=== PATIENT | male | born 1945 | race Hispanic/Latino ===

== ENCOUNTER → 2017-05-23 | Outpatient (CLI) | payer OTHER, MEDICARE | END | disposition home or self-care (01) | LOC: RAH 10:21 | PROVIDERS: ATTEND Family Medicine | DX: R27.0 Ataxia, unspecified (principal); R05 Cough | CPT/HCPCS: 70450; 71046 ==

== ENCOUNTER → 2018-05-07 | Outpatient (CLI) | payer OTHER, MEDICARE | END | disposition home or self-care (01) | LOC: SHCH 15:03 | PROVIDERS: ATTEND Internal Medicine Cardiovascular Disease | DX: I65.23 Occlusion and stenosis of bilateral carotid arteries (principal) | CPT/HCPCS: 93880 ==

== ENCOUNTER → 2018-05-13 | Outpatient (CLI) | payer OTHER, MEDICARE | END | disposition home or self-care (01) | LOC: SHCH 11:37 | PROVIDERS: ATTEND Internal Medicine Cardiovascular Disease | DX: I51.7 Cardiomegaly (principal); I35.0 Nonrheumatic aortic (valve) stenosis | CPT/HCPCS: 93306 ==

== ENCOUNTER → 2019-07-28 | Outpatient (CLI) | payer OTHER, MEDICARE | END | disposition home or self-care (01) | LOC: SHCH 15:54 | PROVIDERS: ATTEND Internal Medicine Cardiovascular Disease | DX: I08.0 Rheumatic disorders of both mitral and aortic valves (principal) | CPT/HCPCS: 93306; 93356 ==

== ENCOUNTER → 2019-07-30 | Outpatient (CLI) | payer OTHER, MEDICARE | END | disposition home or self-care (01) | LOC: SHCH 12:35 | PROVIDERS: ATTEND Internal Medicine Cardiovascular Disease | DX: I65.23 Occlusion and stenosis of bilateral carotid arteries (principal); I35.1 Nonrheumatic aortic (valve) insufficiency | CPT/HCPCS: 93880 ==

== ENCOUNTER → 2020-03-30 | Outpatient (CLI) | payer OTHER, MEDICARE | END | disposition home or self-care (01) | LOC: SHCH 15:14 | PROVIDERS: ATTEND Internal Medicine Cardiovascular Disease | DX: I08.0 Rheumatic disorders of both mitral and aortic valves (principal) | CPT/HCPCS: 93306; 93356 ==

== ENCOUNTER → 2020-07-31 | Outpatient (CLI) | payer OTHER, MEDICARE | END | disposition home or self-care (01) | LOC: SHCH 11:04 | PROVIDERS: ATTEND Internal Medicine Cardiovascular Disease | DX: I65.23 Occlusion and stenosis of bilateral carotid arteries (principal) | CPT/HCPCS: 93880 ==

== ENCOUNTER 2021-04-20 09:12 | Emergency (ER) | payer OTHER, MEDICARE ==
[~2021-04-20] VITALS: Ht 157.5 cm; Wt 54.4 kg
[2021-04-20 09:28] LABS: BASOPHILS % (AUTO) 0.7 % (0.0-5.0); EOSINOPHILS % (AUTO) 1.6 % (0.0-8.0); HEMATOCRIT 41.1 % (42-54); LYMPHOCYTES % (AUTO) 17.2 % (21.0-51.0); MEAN CORPUSCULAR HGB CONC 32.8 g/dL (32.0-36.0); MEAN CORPUSCULAR VOLUME 94.3 fL (79-99); MONOCYTES % (AUTO) 7.6 % (3.0-13.0); NEUTROPHILS % (AUTO) 72.8 % (40.0-77.0); PLATELET COUNT (AUTO) 155 K/uL (130-400); RED BLOOD CELL COUNT(AUTO) 4.36 MIL/uL (4.50-6.20); RED CELL DISTRIBUTION WIDTH 12.8 % (11.0-15.5); WHITE BLOOD COUNT (AUTO) 7.1 K/uL (4.8-10.8)
[2021-04-20 09:38] LABS: CREATININE 1.1 mg/dL (0.5-1.5); POTASSIUM 4.8 mmol/L (3.5-5.1)
[2021-04-20 09:43] LABS: INR 1.1 (0.85-1.15); PROTHROMBIN TIME 11.9 SEC (9.6-11.6)
[2021-04-20 09:44] LABS: PARTIAL THROMBOPLASTIN TIME 30.1 SEC (26.3-35.5)
[2021-04-20 09:47] LABS: ALBUMIN 4.3 g/dL (3.5-5.0); BILIRUBIN,TOTAL 0.8 mg/dL (0.2-1.0); TOTAL PROTEIN, SERUM 7.1 g/dL (6.0-8.3)
[2021-04-20] MEDS ORDERED: 0.9%NACL 1000ML 1,000 ML IV SCH (10:00)
[2021-04-20] MEDS ORDERED: IOHEXOL 350 MG/ML 100ML INFUS..BTL IV ONE (10:41)
[2021-04-20] MEDS ORDERED: ASPIRIN 81MG CHEW TAB PO SCH (12:30)
[2021-04-20 17:54] VITALS: BP 128/75
== END 2021-04-20 18:20 | disposition home or self-care (01) ==
LOC: EDH 09:12
DX: H34.232 Retinal artery branch occlusion, left eye (principal); E78.00 Pure hypercholesterolemia, unspecified; Z20.822 Contact with and (suspected) exposure to COVID-19; Z95.0 Presence of cardiac pacemaker
CPT/HCPCS: 36415; 70450; 70496; 70498; 80053; 84484; 85025; 85610; 85730; 87635; 93005; 99285; C9803; Q9967

== ENCOUNTER 2021-06-01 07:34 | Day surgery (SDC) | payer OTHER, MEDICARE ==
[2021-05-30 10:17] LABS: BASOPHILS % (AUTO) 0.7 % (0.0-5.0); EOSINOPHILS % (AUTO) 1.5 % (0.0-8.0); HEMATOCRIT 41.1 % (42-54); LYMPHOCYTES % (AUTO) 23.1 % (21.0-51.0); MEAN CORPUSCULAR HEMOGLOBIN 30.4 pg (27.0-33.0); MEAN CORPUSCULAR HGB CONC 32.6 g/dL (32.0-36.0); MEAN CORPUSCULAR VOLUME 93.2 fL (79-99); MONOCYTES % (AUTO) 9.8 % (3.0-13.0); NEUTROPHILS % (AUTO) 64.4 % (40.0-77.0); PLATELET COUNT (AUTO) 169 K/uL (130-400); RED BLOOD CELL COUNT(AUTO) 4.41 MIL/uL (4.50-6.20)
[2021-05-30 10:34] LABS: CREATININE 1.2 mg/dL (0.5-1.5); INR 1.05 (0.85-1.15); POTASSIUM 4.9 mmol/L (3.5-5.1); PROTHROMBIN TIME 11.4 SEC (9.6-11.6)
[2021-05-30 10:35] LABS: PARTIAL THROMBOPLASTIN TIME 30.2 SEC (26.3-35.5)
[2021-05-30 10:52] LABS: APPEARANCE,URINE Clear (CLEAR); BILIRUBIN,URINE Negative (NEGATIVE); COLOR,URINE Yellow (YELLOW); GLUCOSE, URINE (UA) Negative (NEGATIVE); KETONES,URINE Negative (NEGATIVE); LEUKOCYTE ESTERASE ,URINE Trace (NEGATIVE); NITRATE,URINE Negative (NEGATIVE); OCCULT BLOOD,URINE Negative (NEGATIVE); PH,URINE 5.5 (5.0-8.0); PROTEIN,URINE Negative (NEGATIVE)
[2021-05-30 11:38] LABS: BACTERIA,URINE Rare /HPF (None Seen); RBC,URINE None Seen /HPF (0-1); WBC,URINE None Seen /HPF (0-1)
[2021-05-30 11:39] LABS: SQUAMOUS EPITHELIAL CELL,UR Rare /HPF (0-2)
[2021-05-30 12:16] VITALS: BP 145/96
[~2021-06-01] VITALS: Ht 162.6 cm; Wt 48.1 kg
[2021-06-01] VITALS (9 sets, daily range): BP systolic 113–145; BP diastolic 33–52
[~2021-06-01 07:34] MED LIST: ASPI-1026 PO; CLOP75TA32 PO; DONE10TA43 PO; FURO20TA4 PO; LEVO25TA54 PO; METO-408 PO; SIMV-46 PO; TAMS-1 PO
[2021-06-01] MEDS ORDERED: 0.9%NACL 1000ML 1,000 ML IV ONE (08:34)
[2021-06-01] MEDS ORDERED: SODIUM BICARB 50MEQ 50ML VIAL 50 ML ONE (13:34)
[2021-06-01] MEDS ORDERED: HEPARIN 10,000 UNIT/10ML (1,000 UNIT/ML) VIAL ONE (13:34)
[2021-06-01] MEDS ORDERED: NITROGLYCERIN 50MG VIAL ONE (13:34)
[2021-06-01] MEDS ORDERED: IOHEXOL 350 MG/ML 100ML INFUS..BTL IV ONE (13:34)
[2021-06-01] MEDS ORDERED: IOHEXOL-350 50ML VIAL IV ONE (13:34)
[2021-06-01] MEDS ORDERED: MEPERIDINE-PF 25 MG/ML SYG ONE (13:35)
[2021-06-01] MEDS ORDERED: MIDAZOLAM HCL 1 MG/ML 2ML VIAL ONE (13:35)
[2021-06-01] MEDS ORDERED: LIDOCAINE HCL 400MG/20ML VIAL ONE (13:35)
[2021-06-01] MEDS ORDERED: IOHEXOL-350 75 ML VIAL IV ONE (14:17)
[2021-06-01] MEDS ORDERED: 0.9%NACL 1000ML 1,000 ML IV SCH (15:30)
== END 2021-06-01 18:56 | disposition home or self-care (01) ==
LOC: DAH 07:34
PROVIDERS: ATTEND Internal Medicine Cardiovascular Disease
DX: I35.2 Nonrheumatic aortic (valve) stenosis with insufficiency (principal); I25.10 Atherosclerotic heart disease of native coronary artery without angina pectoris; I11.0 Hypertensive heart disease with heart failure; I25.82 Chronic total occlusion of coronary artery; I50.32 Chronic diastolic (congestive) heart failure; E78.5 Hyperlipidemia, unspecified; H54.8 Legal blindness, as defined in USA; Z79.82 Long term (current) use of aspirin; Z79.01 Long term (current) use of anticoagulants; Z79.899 Other long term (current) drug therapy; Z95.5 Presence of coronary angioplasty implant and graft; Z98.890 Other specified postprocedural states; Z79.890 Hormone replacement therapy; Z95.1 Presence of aortocoronary bypass graft
CPT/HCPCS: 36415; 80048; 81001; 85025; 85610; 85730; 93005; 93461; 93567; A4215; A4216; A4221; A4222; A4223 ×3; A4606; A4663; C1760; C1769 ×2; C1893; C1894 ×2; J1644 ×2; J2175; J2250; J3490 ×3; J7030; Q9965; Q9967 ×3; 96360; 96361; 99156; 99157

== ENCOUNTER → 2021-07-09 | Outpatient (CLI) | payer OTHER, MEDICARE ==
[~2021-07-09] MED LIST changes: +IOHEXOL 350 MG/ML 100ML INFUS..BTL IV ONE
== END | disposition home or self-care (01) ==
LOC: RAH 09:41
PROVIDERS: ATTEND Internal Medicine Cardiovascular Disease
DX: I25.10 Atherosclerotic heart disease of native coronary artery without angina pectoris (principal); I35.0 Nonrheumatic aortic (valve) stenosis; I70.0 Atherosclerosis of aorta; K57.30 Diverticulosis of large intestine without perforation or abscess without bleeding; R91.8 Other nonspecific abnormal finding of lung field
CPT/HCPCS: 74174; 75574; Q9967